=== PATIENT | male | born 2000 | race Caucasian/White ===

== ENCOUNTER 2018-06-10 12:00 | Emergency (ER) | payer BC, OTHER ==
[~2018-06-10] VITALS: Ht 193 cm; Wt 81.0 kg
[2018-06-10] MEDS ORDERED: ipratropium/albuterol 3ml nebule NEB ONE (12:35)
[2018-06-10] MEDS ORDERED: predniSONE 20 mg tablet PO ONE (12:35)
[2018-06-10] MEDS ORDERED: racepinephrine 11.25mg/0.5ml nebule IH ONE (13:15)
[2018-06-10] MEDS ORDERED: LORazepam 1 MG tablet PO ONE (14:30)
[2018-06-10] MEDS ORDERED: LORazepam 0.5 MG tablet PO ONE (14:30)
[2018-06-10] MEDS ORDERED: PRED20TA PO (15:00)
[2018-06-10 15:30] VITALS: BP 134/77
== END 2018-06-10 15:36 | disposition home or self-care (01) ==
LOC: ER 12:00
DX: T78.40XA Allergy, unspecified, initial encounter (principal); J45.909 Unspecified asthma, uncomplicated; Z79.899 Other long term (current) drug therapy; X58.XXXA Exposure to other specified factors, initial encounter
CPT/HCPCS: 70490; 71045; 94640; 94760; 99284; J7512